=== PATIENT | male | born 1955 | race Caucasian/White ===

== ENCOUNTER 2023-07-07 06:36 | Day surgery (SDC) | payer OTHER, SELFPAY ==
[2023-07-07 08:08] VITALS: BMI 35.6
[2023-07-07 08:12] VITALS: BP 154/85
[2023-07-07 08:17] VITALS: BMI 35.6
[2023-07-07 08:28] LABS: Glucose - Point of Care 121 mg/dl (70-99)
[2023-07-07 09:45] VITALS: BP 91/50
[2023-07-07 10:00] VITALS: BP 102/61
[2023-07-07 10:11] VITALS: BP 91/51
== END 2023-07-07 10:23 | disposition home or self-care (01) ==
LOC: SDS 06:36
PROVIDERS: ATTENDING PHYSICIAN Internal Medicine Gastroenterology
DX: K31.89 Other diseases of stomach and duodenum (principal)
CPT/HCPCS: 43237; 82962

== ENCOUNTER 2023-08-16 06:10 | Day surgery (SDC) | payer OTHER, SELFPAY ==
[2023-08-16 07:18] VITALS: BP 154/82
[2023-08-16 07:21] VITALS: BMI 35.9
[2023-08-16 07:30] LABS: Glucose - Point of Care 156 mg/dl (70-99)
[2023-08-16 07:43] VITALS: BMI 35.9
[2023-08-16 09:15] VITALS: BP 95/41
[2023-08-16 09:30] VITALS: BP 93/49
[2023-08-16 09:32] LABS: Glucose - Point of Care 138 mg/dl (70-99)
[2023-08-16 09:40] VITALS: BP 121/68
== END 2023-08-16 09:50 | disposition home or self-care (01) ==
LOC: SDS 06:10
PROVIDERS: ATTENDING PHYSICIAN Internal Medicine Gastroenterology
DX: K31.7 Polyp of stomach and duodenum (principal); K31.89 Other diseases of stomach and duodenum
CPT/HCPCS: 43237; 43251; 88305; 82962; 88341; 88342

== ENCOUNTER → 2023-09-22 06:28 | Day surgery (SDC) | payer OTHER, SELFPAY ==
[2023-09-22 07:33] LABS: Glucose - Point of Care 165 mg/dl (70-99)
== END ==
LOC: GI 06:28
PROVIDERS: ATTENDING PHYSICIAN Internal Medicine Gastroenterology; FAMILY PHYSICIAN Family Medicine
DX: Z12.11 Encounter for screening for malignant neoplasm of colon (principal); D12.0 Benign neoplasm of cecum; D12.5 Benign neoplasm of sigmoid colon; K63.5 Polyp of colon; K57.30 Diverticulosis of large intestine without perforation or abscess without bleeding; K64.8 Other hemorrhoids; Z86.010 Personal history of colon polyps
CPT/HCPCS: 45385; 45380; 88305; 82962

== ENCOUNTER → 2024-08-13 14:51 | Outpatient (REF) | payer OTHER, SELFPAY | LOC: HWRCS 14:51 | PROVIDERS: ATTENDING PHYSICIAN Student in an Organized Health Care Education/Training Program; FAMILY PHYSICIAN Family Medicine | DX: R01.1 Cardiac murmur, unspecified (principal) | CPT/HCPCS: 93306 ==